=== PATIENT | male | born 1945 | race Caucasian/White ===

== ENCOUNTER 2017-04-16 07:17 | Emergency (ER) | payer MEDICARE, OTHER ==
[2017-04-16] MEDS: ASPIRIN 325 MG TABLET PO (07:47)
[2017-04-16 07:55] LABS: ADD MAN DIFF? NO
[2017-04-16 07:59] LABS: BASO % 1 % (0-3); EOS # 0.1 x10^3/uL (0.0-0.7); EOS % 2 % (0-3); HEMOGLOBIN 14.2 g/dL (13.0-17.5); LYMPH % 24 % (24-48); MEAN CORPUSCULAR HEMOGLOBIN 29 pg (25-35); MEAN CORPUSCULAR HGB CONC 32 g/dL (31-37); MEAN CORPUSCULAR VOLUME 91 fL (79-100); MONO # 1.1 x10^3/uL (0.0-1.1); MONO % 13 % (0-9); NEUT # 5.2 x10^3uL (1.8-7.7); NEUT % 62 % (31-73); PLATELET COUNT 199 x10^3/uL (140-400); RED BLOOD COUNT 4.85 x10^6/uL (4.30-5.70); RED CELL DISTRIBUTION WIDTH 13.7 % (11.5-14.5); WHITE BLOOD COUNT 8.4 x10^3/uL (4.0-11.0)
[2017-04-16 08:09] LABS: INR 2.3 (0.8-1.1); PROTHROMBIN TIME PATIENT 23.6 SEC (11.7-14.0)
[2017-04-16 08:12] LABS: ANION GAP 8 (6-14); BLOOD UREA NITROGEN 28 mg/dL (8-26); BUN/CREATININE RATIO 22 (6-20); CALCIUM 9.4 mg/dL (8.5-10.1); CARBON DIOXIDE 27 mmol/L (21-32); CHLORIDE 106 mmol/L (98-107); CREATININE 1.3 mg/dL (0.7-1.3); GFR 54.3; GLUCOSE 145 mg/dL (70-99); POTASSIUM 4.4 mmol/L (3.5-5.1); SODIUM 141 mmol/L (136-145)
[2017-04-16] MEDS: KETOROLAC 30 MG/ML INJ. IV (08:15)
[2017-04-16 08:18] LABS: ALBUMIN 3.5 g/dL (3.4-5.0); ALBUMIN/GLOBULIN RATIO 1.1 (1.0-1.7); ALK PHOS 46 U/L (46-116); ALT (SGPT) 27 U/L (16-63); AST (SGOT) 20 U/L (15-37); TOTAL BILIRUBIN 0.4 mg/dL (0.2-1.0); TOTAL PROTEIN 6.8 g/dL (6.4-8.2)
[2017-04-16 08:21] LABS: NT-PRO BNP 1560 pg/mL (0-124)
[2017-04-16 08:22] LABS: TROPONINI < 0.017 ng/mL (0.000-0.055)
[2017-04-16] MEDS ORDERED: IOHEXOL 300 MG/ML 100ML VIAL. IV (09:00)
[2017-04-16] MEDS ORDERED: CONTRAST GIVEN MC (09:00)
[2017-04-16] MEDS: IOHEXOL 300 MG/ML 100ML VIAL. IV (09:27)
== END 2017-04-16 11:30 | disposition home or self-care (01) ==
LOC: ER 07:17
DX: R07.89 Other chest pain (principal); J32.9 Chronic sinusitis, unspecified; I48.91 Unspecified atrial fibrillation; K21.9 Gastro-esophageal reflux disease without esophagitis; E78.00 Pure hypercholesterolemia, unspecified; Z79.01 Long term (current) use of anticoagulants; Z79.82 Long term (current) use of aspirin
CPT/HCPCS: 36415; 71045; 71260; 80053; 83735; 83880; 84484; 85025; 85610; 93005; 96374; 99285-25; J1885; Q9967

== ENCOUNTER → 2017-04-30 | Outpatient (CLI) | payer MEDICARE ==
[2017-04-30] MEDS: GADOBUTROL 7.5 MMOL/7.5 ML VIAL IV ×2 (13:42)
== END | disposition home or self-care (01) ==
LOC: KCIC MRI 12:43
DX: T15.90XA Foreign body on external eye, part unspecified, unspecified eye, initial encounter (principal); J32.0 Chronic maxillary sinusitis; I63.8 Other cerebral infarction; I73.89 Other specified peripheral vascular diseases
CPT/HCPCS: 70030; 70553; A9585

== ENCOUNTER → 2017-06-03 | Outpatient (CLI) | payer MEDICARE | END | disposition home or self-care (01) | LOC: KCIC CT 11:41 | DX: J32.1 Chronic frontal sinusitis (principal) | CPT/HCPCS: 70486 ==